=== PATIENT | female | born 1965 | race Caucasian/White ===

== ENCOUNTER 2024-07-27 14:15 | Emergency (ER) | payer MEDICAID ==
[~2024-07-27] VITALS: Ht 167.6 cm; Wt 68.9 kg
[2024-07-27] MEDS: KETOROLAC 15MG/ML VIAL IV ONE (15:09)
[2024-07-27] MEDS: DEXAMETHASONE 4MG/ML 1ML VIAL IV ONE (15:09)
[2024-07-27] MEDS: SODIUM CHLORIDE 0.9% 1,000 ML IV ONE (15:09)
[2024-07-27 15:45] LABS: BASOPHILS % 0.2 % (0.0-2.0); EOSINOPHILS % 0.2 % (0.0-5.0); HEMATOCRIT. 28.7 % (36.0-48.0); HEMOGLOBIN. 9.6 g/dL (12.0-16.0); LYMPHOCYTES % 22.2 % (20.0-50.0); MEAN CORPUSCULAR HGB CONC 33.5 g/dL (31.0-37.0); MEAN CORPUSCULAR VOLUME 89.7 fL (81.0-99.0); MEAN PLATELET VOLUME 9.7 fl (7.4-10.4); NEUTROPHILS % 68.4 % (40.0-76.0); PLATELET 161 x1000/uL (130-400); RED BLOOD CELL COUNT 3.19 mill/uL (4.2-5.4); RED CELL DISTRIBUTION WIDTH 12.1 % (11.6-14.6); WHITE BLOOD COUNT 5.5 x1000/uL (4.5-11.0)
[2024-07-27 15:57] LABS: CHLORIDE 105 mEq/L (98-107); POTASSIUM 4.1 mEq/L (3.5-5.1); SODIUM 140 mEq/L (136-145)
[2024-07-27 15:58] LABS: CALCIUM 8.8 mg/dL (8.7-10.4); CARBON DIOXIDE 30 mEq/L (21-32)
[2024-07-27 16:03] LABS: CREATININE 1.1 mg/dL (0.6-1.0); GLUCOSE 245 mg/dL (70-105); TROPONIN I HIGH SENSITIVITY 4 ng/L (3.0-34); UREA NITROGEN BLOOD 41 mg/dL (9-23)
[2024-07-27 16:05] LABS: ALANINE AMINOTRANSFERASE 89 IU/L (10-49); ALBUMIN 3.7 g/dL (3.2-4.8); ASPARTATE AMINOTRANSFERASE 58 IU/L (<34); BILIRUBIN TOTAL 0.3 mg/dL (0.1-1.0); PROTEIN TOTAL 6.5 g/dL (6.0-8.3)
[2024-07-27] MEDS: IPRATROPIUM/ALBUTEROL 0.5-3(2.5)MG/3ML NEB HHN ONE (16:05)
[2024-07-27] MEDS: BUDESONIDE 0.5MG/2ML NEB HHN ONE (16:05)
[2024-07-27 16:07] VITALS: PULSE 85; RESP 16; O2SAT 98
[2024-07-27] MEDS ORDERED: FLUT1BLS8 IH (17:17)
[2024-07-27] MEDS ORDERED: BROM118S47 GT (17:19)
[2024-07-27 17:54] VITALS: BP 128/89; PULSE 98; RESP 16; TEMP 36.94740; O2SAT 100
== END 2024-07-27 17:54 | disposition home or self-care (01) ==
LOC: ER 14:24
DX: U07.1 COVID-19 (principal); E11.9 Type 2 diabetes mellitus without complications; K21.9 Gastro-esophageal reflux disease without esophagitis; I10 Essential (primary) hypertension; E03.9 Hypothyroidism, unspecified
CPT/HCPCS: 80053; 83880; 83735; 85025; 84484; 36415; 71045; 94640; 96361; 96374; 96375; 99284; J1100; J1885; Z7610 ×7; J7626; J7030